=== PATIENT | female | born 1990 | race Native Hawaiian/Other Pacific Islander ===

== ENCOUNTER 2022-08-13 13:54 | Emergency (ER) | payer OTHER ==
[~2022-08-13] VITALS: Ht 170.2 cm; Wt 74.8 kg
[2022-08-13 13:58] VITALS: TEMP 98.6
[2022-08-13 14:35] VITALS: BP 124/75
== END 2022-08-13 14:35 | disposition home or self-care (01) ==
LOC: ED 13:54
DX: L02.412 Cutaneous abscess of left axilla (principal)
CPT/HCPCS: 99281

== ENCOUNTER 2022-09-21 14:31 | Emergency (ER) | payer OTHER ==
[~2022-09-21] VITALS: Ht 170.2 cm; Wt 72.6 kg
[2022-09-21 14:37] VITALS: TEMP 100
[2022-09-21 15:33] LABS: PLATELET COUNT 232 K/uL (152-353)
[2022-09-21 15:41] LABS: POTASSIUM 3.3 mmol/L (3.6-5.2)
[2022-09-21 18:52] VITALS: BP 125/77
== END 2022-09-21 18:52 | disposition home or self-care (01) ==
LOC: ED 14:31
PROVIDERS: Emergency Medicine Emergency Medical Services
DX: R11.2 Nausea with vomiting, unspecified (principal); J40 Bronchitis, not specified as acute or chronic; Z20.822 Contact with and (suspected) exposure to COVID-19; F17.210 Nicotine dependence, cigarettes, uncomplicated
CPT/HCPCS: 36415; 80048; 81002; 81025; 82150; 83690; 83735; 85027; 87040; 87205; 87502; 87635; 96361; 96365; 96366; 96375; 99284; J1885; J1956; J2405; U0001